=== PATIENT | male | born 1955 ===

== ENCOUNTER 2024-01-19 00:52 | Outpatient (CLI) | payer MEDICARE, SELFPAY ==
--- NOTE | 2024-01-19 | DI.NM_ITS ---
APPROVED REPORT Exam: Pharmacologic Patient Location: Out-Patient Room/Bed: Stress Nurse: Meenu Estrella RN Ordering Provider:CODY HENSON, Contact Number: [phone] BMI: 31.61 Baseline Rhythm: Sinus Rhythm Comment: Rare PVC's Indications: Chest pressure Medical History Medical History: Aortic atheroslerosis, chronic pain, HLD, HTN. neuropathic pain, overweight, raynaud s disease Cardiac Medications: Atorvastatin, baclofen, losartan, meloxicam, nitro, pantoprazole, tamsulosin, tr iamterene-hydrochlorothiazide Allergies: Amlodipine, hydralazine, levitra Cardiac Risk Factors: HTN, HLD, CVD, former smoker Previous Cardiac Procedures: None Pretest Chest Pain Characteristics: None Exercise History: Sedentary Physical Disabilities: Bilateral legs Lung Sounds: Clear to auscultation Heart Sounds: Regular Stress Test Details Test: Pharmacologic stress was paired with low level exercise. Reason for pharmacologic stress test: physical limitation. Nuclear Acquisition: Rest Tc-99m/Stress Tc-99m 1 day Rest Isotope: Tc-99m Sestamibi. Dose: 11.0 Date: 01/19/2024 Injection Time: 0910 Stress Isotope: Tc-99m Sestamibi. Dose: 32.5 Date: 01/19/2024 Injection Time: 1050 HR Resting HR Supine: 62 bpm Max Heart Rate (APMHR): 154 bpm Resting HR Standin bpm Target HR (85% APMHR): 131 bpm Max HR Achieved: 119 bpm % of APMHR: 77 Recovery HR: 77 bpm BP Resting BP Supine: 138/84 mmHg Resting BP Standin/82 mmHg Max BP: 142/82 mmHg Recovery BP: 140/84 mmHg ECG Resting ECG: Sinus Rhythm Ectopy: Rare PVC's Stress ECG: Sinus Tachycardia ST Change: Nondiagnostic low heart rate Arrhythmia: Occasional PVC's Recovery ECG: Sinus Rhythm Recovery ST Change: Nondiagnostic low heart rate Clinical Stress Symptoms: Headache Angina Score: None Rate Pressure Product: [id number] Stress ECG Conclusion 1. Resting electrocardiogram was normal 2. Patient underwent testing using pharmacologic stress with regadenoson 3. Peak heart rate achieved was 77% of maximal predicted for age 4. The electrocardiographic portion of the test was nondiagnostic 5. There were no significant dysrhythmias 6. See MPI report Stress Test Summary STAGE HR BP SpO2 Symptoms NOTES Supine 62 138/84 94% Standing 73 142/82 1 min post Lexiscan injection 115 120/92 Headache 3 min post Lexiscan injection 82 138/82 96% 6 min post Lexiscan injection 77 140/84 96%
[2024-01-19] MEDS: Regadenoson 0.4 MG/5 ML SYR IVP (10:53)
== END 2024-01-19 01:12 ==
PROVIDERS: Visit Provider Family Medicine
DX: R07.9 Chest pain, unspecified (principal)
CPT/HCPCS: 78452; 93016; 93018; 93017; J2785